=== PATIENT | male | born 1950 | race African-American/Black ===

== ENCOUNTER → 2017-02-19 | Outpatient (CLI) | payer BC, MEDICARE ==
--- NOTE | ~2017-02-19 | CR229 ---
[facility] A Service of [facility] & [facility] RADIOLOGY TEXT RESULTS PATIENT: ESTHER KAISER LOCATION: [facility] : 46 UNIT #: [id number] AGE: [address]: EBONY ALARCON APRN SEX: M ORDER DR: [id number] [facility] [address] [place], [place] [address] [id number] O MR#: [id number] Acc #: [id number] NAME: ESTHER KAISER : 1950 SEX: M STUDY DATE/TIME: 02/19/2017 9:33 UNIT: [facility] ROOM: STUDY DESCRIPTION: CR Shoulder Min 2 View Lt Attending Physician: Ebony Alarcon Aprn Referring Physician: Ebony Alarcon Aprn Ordering Physician: Jarrett Not Listed Primary Care Physician: Suresh Ford M.D. MEDICAL IMAGING REPORT This report is preliminary unless electronic signature is present EXAM Left shoulder 3 views. HISTORY Chronic shoulder pain for years. No recent injury. FINDINGS 3 views of the left shoulder demonstrate satisfactory shoulder alignment. Mild degenerative changes at the acromioclavicular joint. Curvilinear soft tissue calcifications or opaque foreign bodies in the supraclavicular fossa measure up to approximately 1 cm. IMPRESSION 1. No acute findings in the left shoulder. 2. Mild degenerative changes at the acromioclavicular joint. Dictated by... Maksim Ordoñez M.D. THIS IS AN ELECTRONICALLY VERIFIED REPORT Maksim Ordoñez M.D. at 02/19/2017 11:29 PM Alvaro TD: 02/19/2017 18:21 JOB #: [id number] MEDICAL IMAGING REPORT Page 1 of 1 COPY
--- NOTE | ~2017-02-19 | CR243 ---
[facility] A Service of [facility] & [facility] RADIOLOGY TEXT RESULTS PATIENT: ESTHER KAISER LOCATION: [facility] : 46 UNIT #: [id number] AGE: [address]: EBONY ALARCON APRN SEX: M ORDER DR: [id number] [facility] [address] [place], [place] [address] [id number] O MR#: [id number] Acc #: [id number] NAME: ESTHER KAISER : 1950 SEX: M STUDY DATE/TIME: 02/19/2017 9:33 UNIT: [facility] ROOM: STUDY DESCRIPTION: CR Thoracic Spine 3 Views Attending Physician: Ebony Alarcon Aprn Referring Physician: Ebony Alarcon Aprn Ordering Physician: Staff Doctor Not On Primary Care Physician: Suresh Ford M.D. MEDICAL IMAGING REPORT This report is preliminary unless electronic signature is present EXAM Thoracic spine, 3 views. HISTORY Neck and upper back pain for 5 years. FINDINGS There is a mild upper thoracic short segment levoscoliosis, but no fracture or acute abnormality. There is osteopenia and slight degenerative change but the exam is otherwise unremarkable. Dictated by... Pedro Montenegro M.D. THIS IS AN ELECTRONICALLY VERIFIED REPORT Pedro Montenegro M.D. at 02/24/2017 10:34 AM YASMEEN/nathaly TD: 02/19/2017 15:25 JOB #: [id number] MEDICAL IMAGING REPORT Page 1 of 1 COPY
--- NOTE | ~2017-02-19 | CR184 ---
[facility] A Service of [facility] & [facility] RADIOLOGY TEXT RESULTS PATIENT: ESTHER KAISER LOCATION: [facility] : 46 UNIT #: [id number] AGE: [address]: EBONY ALARCON APRN SEX: M ORDER DR: [id number] [facility] [address] [place], [place] [address] [id number] O MR#: [id number] Acc #: [id number] NAME: ESTHER KAISER : 1950 SEX: M STUDY DATE/TIME: 02/19/2017 9:53 UNIT: [facility] ROOM: STUDY DESCRIPTION: CR Lumbar Spine Min 4 Views Attending Physician: Ebony Alarcon Aprn Referring Physician: Ebony Alarcon Aprn Ordering Physician: Physician Non-Staff Primary Care Physician: Suresh Ford M.D. MEDICAL IMAGING REPORT This report is preliminary unless electronic signature is present EXAM Lumbar spine 5 views 02/19/2017. HISTORY Mild dextroscoliosis, minimal discogenic change but no fracture or acute abnormality. IMPRESSION Slight degenerative change without acute abnormality. Mild scoliosis. Dictated by... Pedro Montenegro M.D. THIS IS AN ELECTRONICALLY VERIFIED REPORT Pedro Montenegro M.D. at 02/24/2017 10:33 AM TEV/sabrina TD: 02/19/2017 15:35 JOB #: [id number] MEDICAL IMAGING REPORT Page 1 of 1 COPY
--- NOTE | ~2017-02-19 | CR58 ---
[facility] A Service of [facility] & [facility] RADIOLOGY TEXT RESULTS PATIENT: ESTHER KAISER LOCATION: [facility] : 46 UNIT #: [id number] AGE: [address]: EBONY ALARCON APRN SEX: M ORDER DR: [id number] [facility] [address] [place], [place] [address] [id number] O MR#: [id number] Acc #: [id number] NAME: ESTHER KAISER : 1950 SEX: M STUDY DATE/TIME: 02/19/2017 9:32 UNIT: [facility] ROOM: STUDY DESCRIPTION: CR Cervical Spine 2 or 3 Views Attending Physician: Ebony Alarcon Aprn Referring Physician: Ebony Alarcon Aprn Ordering Physician: Physician Non-Staff Primary Care Physician: Suresh Ford M.D. MEDICAL IMAGING REPORT This report is preliminary unless electronic signature is present EXAM Cervical spine, 3 views, 02/19/2017. HISTORY Neck and left shoulder and upper back pain for 5 years. FINDINGS Normal alignment. No prevertebral swelling. No fracture. Well-preserved intervertebral discs. Essentially normal study. Dictated by... Pedro Montenegro M.D. THIS IS AN ELECTRONICALLY VERIFIED REPORT Pedro Montenegro M.D. at 02/24/2017 10:34 AM YASMEEN/gopal TD: 02/19/2017 15:21 JOB #: [id number] MEDICAL IMAGING REPORT Page 1 of 1 COPY
== END | disposition home or self-care (01) ==
LOC: CRAD 09:05
DX: M25.512 Pain in left shoulder (principal); M54.40 Lumbago with sciatica, unspecified side; M54.2 Cervicalgia; R07.9 Chest pain, unspecified
CPT/HCPCS: 72040; 72072; 72110; 73030